=== PATIENT | female | born 1990 | race Caucasian/White ===

== ENCOUNTER 2016-05-15 18:29 | Emergency (ER) | payer MEDICAID, OTHER ==
[2016-05-15 19:06] VITALS: TEMP 98.1
[2016-05-15 19:07] VITALS: BMI 27.3
[2016-05-15] MEDS ORDERED: HYDROCODONE 5 MG/ACETAMIN 325 MG TAB PO ONE (19:40)
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
[2016-05-15] MEDS ORDERED: TRIMETHOPRIM-SULFAMETHOXAZOLE TAB PO ONE ×2 (20:08→20:24)
[2016-05-15] MEDS ORDERED: CIPROFLOXACIN HCL 500 MG TAB PO ONE (20:08)
[2016-05-15 20:43] VITALS: BP 115/72; PULSE 98
== END 2016-05-15 20:40 | disposition home or self-care (01) ==
LOC: EDMC 18:29
DX: T81.4XXA Infection following a procedure, initial encounter (principal); L03.116 Cellulitis of left lower limb; Y83.8 Other surgical procedures as the cause of abnormal reaction of the patient, or of later complication, without mention of misadventure at the time of the procedure
CPT/HCPCS: 99283; J3490